=== PATIENT | female | born 1985 | race Caucasian/White ===

== ENCOUNTER → 2024-01-26 15:58 | Outpatient (REF) | payer OTHER, SELFPAY ==
--- NOTE | 2024-01-26 16:08 | CA_ITS ---
Transthoracic Echocardiogram Patient (Last, First, Middle): Valerie Barrett, Gender: Female Date of : 1985 Age: 38 Procedure Date: 01/26/2024 Procedure Type: Transthoracic Echocardiogram Location: OP Height: 157.48 cm Weight: 92.99 kg BSA: 1.93 m2 Heart Rate: bpm BP: 138 / 87 mmHg Client Consultant: JEWEL Referring MD: Estee TAVARES Disk Sharpener: Chris Lawrence MD Symptoms: R06.09 DYSPNEA OVER EXERTION Study Quality: Adequate ECG Rhythm: Sinus Conclusions: - Essentially normal study Findings Left Ventricle Normal left ventricular size, thickness, and systolic function. The visually estimated ejection fraction is between 55-60%. Spectral Doppler is indicative of a normal filling pattern. Right Ventricle Normal right ventricular cavity size and systolic function. Atria Both atria are normal in size. There is no evidence of interatrial shunt. Aortic Valve Normal aortic valve structure and function. There is no aortic valve stenosis. There is no aortic valve regurgitation. Mitral Valve Normal mitral valve structure and function. There is no mitral valve regurgitation. There is no mitral valve stenosis. Pulmonic Valve The pulmonic valve is likely normal. There is trace pulmonic valve regurgitation. Tricuspid Valve Normal tricuspid valve structure. There is trace tricuspid valve regurgitation. The right ventricular systolic pressure is normal. The right ventricular systolic pressure is 30 mmHg. Normal right atrial pressure. There is no evidence of pulmonary hypertension. Great Vessels All visible segments of the aorta are normal in size. The pulmonary artery was not well visualized. Venous The inferior vena cava is normal in size and collapses greater than 50% with inspiration. Pericardium/Pleural There is no evidence of pericardial effusion. Prior Study Comparison No prior study available for comparison. Measurements 2D Linear Measurements IVSd: 1.17 0.6-0.9/0.6-1.0 cm LVIDd: 4.36 3.9-5.3/4.2-5.9 cm LVIDd Index: 2.26 2.4-3.2/2.2-3.1 cm/m2 LVIDs: 2.80 2.0-3.6 cm LVPWd: 1.10 0.7-1.1 cm Ao Root: 2.70 2.1-3.5 cm LA Diam: 3.10 2.7-3.8/3.0-4.0 cm LAIDs Index: 1.61 1.5-2.3 cm/m2 LV Mass: 216.89 67-162/88-224 g LV Mass Index: 112.38 43-95/49-115 g/m2 LVOT Diam: 2.00 3.0+(-)1.3 cm 2D Systolic Function EF 4C: 50.30 >55% EF 2C: 59.60 >55% EF BiP: 57.30 >55% Mitral Valve MV Pk E: 0.78 MV PK A: 0.63 MV Decel Time: 232.00 E/A: 1.20 E'Lateral: 14.90 E'Medial: 9.30 E/E' Med: 8.40 E/E' Lat: 5.30 PHT: 68.00 MVA PHT: 3.24 Decel Emanuel: 3.38 Aortic Valve AoV Pk Sarwat: 1.66 AoV Mn Sarwat: 1.03 AoV VTI: 0.33 AoV Pk Grad: 11.00 Aov Mn Grad: 5.00 FREDI Cont.VTI: 1.71 LVOT LVOT Pk Sarwat: 0.93 LVOT Mn Sarwat: 0.57 LVOT VTI: 0.18 LVOT Pk Grad: 3.00 LVOT Mn Grad: 2.00 LVOT Diam: 2.00 LVOT Area: 3.14 Diastolic Function MV Pk E: 0.78 MV Pk A: 0.63 E/A: 1.20 E'Medial: 9.30 E/E' Med: 8.40 E' Laterial: 14.90 E/E' Lat: 5.30 Tricuspid Valve TR Pk Sarwat: 2.58 TR Pk Grad: 27.00 RA Press: 3.00 RVSP: 30.00 Great Vessels Aorta Ao Root-2D: 2.70 2.0-3.7 cm Ao Asc: 3.10 2.1-3.4 cm Pulmonary Valve PV Pk Sarwat: 1.14 Peak PV Grad: 5.00 Updated in Other Vendor System with Status of Final Chris Lawrence MD electronically signed on 01/27/2024 2:32:27 PM with status of Final
== END ==
LOC: HO.CARD 15:58
PROVIDERS: PCP Internal Medicine; Visit Provider Physician Assistant
DX: R06.09 Other forms of dyspnea (principal)
CPT/HCPCS: 93306

== ENCOUNTER → 2024-01-26 16:08 | Outpatient (BNV) | payer OTHER, SELFPAY | PROVIDERS: PCP Internal Medicine; Visit Provider Internal Medicine Cardiovascular Disease | DX: R06.09 Other forms of dyspnea (principal) | CPT/HCPCS: 93306 ==